=== PATIENT | male | born 1955 | race Caucasian/White ===

== ENCOUNTER 2017-04-27 11:37 | Inpatient (IN) | payer BC, SELFPAY ==
[2017-04-27 12:02] VITALS: BP 160/79; PULSE 91; RESP 16; TEMP 36.8; O2SAT 98
--- NOTE | 2017-04-27 12:03 | NURSING ---
Pt admitted to room 8 from [facility]. Oriented to room and call light system explained.
[2017-04-27] MEDS: Acetaminophen 500 MG Tablet 1000 MG PO ×2 (13:37→21:52)
[2017-04-27] MEDS: Gabapentin 600 MG Tablet PO ×2 (14:17→17:45)
[2017-04-27 14:55] VITALS: BMI 30.3
[2017-04-27 15:01] VITALS: BMI 30.3
[2017-04-27 15:44] VITALS: BP 128/78; PULSE 101; RESP 18; TEMP 37.1; O2SAT 99
[2017-04-27 17:46] LABS: Bedside Glucose 105 mg/dL (70-110)
--- NOTE | 2017-04-27 20:40 | PCM.HP.STD ---
Problem List (1) Fall Status: Acute (2) Leg pain Status: Acute (3) Diabetic amyotrophy Status: Chronic (4) Renal cyst Status: Chronic (5) Weakness Status: Acute (6) DM2 (diabetes mellitus, type 2) Status: Chronic (7) KODY (obstructive sleep apnea) Status: Chronic (8) Hypertension Status: Chronic History of Present Illness Date of Admission: 04/27/17 Chief Complaint: Here for rehabilitation, strengthening, prior to disposition determination. The patient is a 61 year old Male with below past medical history presented to [facility] Emergency Department 04/26/2017 with fall, bilateral leg pain. 04/26/2017 CT brain negative. 04/26/2017 Chest X-ray negative. 04/26/2017 EKG Normal sinus rhythm, left bundle branch block. 04/26/2017 X-ray left knee negative. 04/26/2017 X-ray pelvis negative. Discharged from 1 day prior. Recently diagnosed with diabetic amyotrophy. Prolonged stay in . Unable to care for self at home. Labs negative. 04/26/2017 Admit to Hospital. MRI lumbar spine showed lumbar disc disease, lumbar arthritis. Hold Tramadol, Fentanyl, Gabapentin. Ruled out for multiple sclerosis, stroke, transverse myelitis. Conversion disorder, Somatization disorder also possibility. 04/27/2017 Admit to TCU for rehabilitation, strengthening, prior to disposition determination. 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) Diabetic amyotrophy (Chronic) Allergies amphetamine Adverse Reaction (Verified 04/26/17 00:00) Other metformin [From Glucophage] Adverse Reaction (Verified 04/26/17 00:00) Nausea Home Medications: Ambulatory Orders Medication Instructions Recorded Gabapentin [Neurontin] 600 mg PO TIDCM #90 tab 04/25/17 Acetaminophen [Tylenol Tablet] 1,000 mg PO Q8 04/27/17 Insulin Aspart [Novolog Flexpen] 5 units SC TIDCM 04/27/17 Insulin Detemir [Levemir FlexPen] 10 units SC QHS 04/27/17 Losartan Potassium [Cozaar] 25 mg PO DAILY 04/27/17 Surgical History: no surgical history Psychiatric History: No pertinent psych hx Lives: Spouse/ Significant Other Smoking Status: Never smoker Tobacco Use: Non-smoker Alcohol: None Drugs: None - *Family History Paternal History Items: Dementia, - - 3 - 6 strokes when in his 70's Maternal History Items: No pertinent history Review of Systems Constitutional: Reports: Weakness. Denies: Chills, Fever, Weight Change HEENT: Denies: Head Aches, Sinus Congestion, Sinus Drainage Cardiovascular: Denies: Chest Pain, Palpitations Respiratory: Denies: Cough, Shortness of breath at rest, Sputum production Gastrointestinal: Denies: Abdominal Pain, Nausea, Vomiting Genitourinary: Denies: Dysuria Musculoskeletal: Denies: Joint Pain, Joint Tenderness Skin: Denies: Rash, Wounds Neurological: Denies: Numbness, Tingling, Focal weakness Psychiatric: Denies: Anxiety, Depression, Homicidal Ideations, Suicidal Ideations Hematologic/ Lymphatic: Denies: Easy Bruising, Easy Bleeding VTE Information - Inpt Only VTE Present on Admission: No VTE Mechan Device Prophylaxis: Knee High NORA Hose VTE Pharm Prophylaxis ordered?: Yes Patient Problems: Active and Suspected Problems (Last Updated 04/12/17 @ 16:53 by Merry Fraser) Fall (Acute) Leg pain (Acute) - Physical Exam General: Alert, Oriented x3, Cooperative HEENT: Atraumatic, PERRLA, EOMI, Normocephalic Neck: Supple, No JVD, Negative Carotid Bruits Lungs: Clear to auscultation, Normal air movement Cardiovascular: Regular rate, No murmurs Abdomen: Bowel Sounds Present, Soft, Non Tender Extremities: No edema, Capillary Refill Less than 3 Seconds Skin: No rashes, No breakdown Musculoskeletal: No Tenderness to Palpation of Joints or Extremities Neurological: Cranial nerves II-XII grossly intact Psych/Mental Status: Normal Affect, Appropriate Vital Signs Temp Pulse Resp BP Pulse Ox 98.7 F 101 H 18 128/78 H 99 04/27/17 15:44 04/27/17 15:44 04/27/17 15:44 04/27/17 15:44 04/27/17 15:44 Oxygen Delivery Method Room Air Weight: 93.2 kg Body Mass Index (BMI) 30.3 POC Glucose 04/27/17 17:41 POC Glucose 105 Assessment/Plan Active and Suspected Problems (Last Updated 04/12/17 @ 16:53 by Merry Fraser) Fall (Acute) Leg pain (Acute) 61 year old male with below past medical history significant for diabetic amyotrophy, hospitalized for fall, weakness, inability to care for self, admitted to TCU for rehabilitation, strengthening, prior to disposition determination. Debility - PT/OT. Pain - Tylenol 1000MG Q8H. Bowel - Miralax 17GM daily, Dulcolax 10MG PO daily PRN. Pneumonia vaccination - Administer Prevnar 13 and/or Pneumovax 23 as necessary. DVT prophylaxis - Lovenox 40MG SC daily. Neuropathic pain - Gabapentin 600MG TID. Diabetes Mellitus II - Levemir 10 units QHS, Novolog 5 units TIDCM. Hypertension - Losartan 25MG daily.
--- NOTE | 2017-04-27 20:52 | HP.PCM_ITS ---
Problem List (1) Fall Status: Acute (2) Leg pain Status: Acute (3) Diabetic amyotrophy Status: Chronic (4) Renal cyst Status: Chronic (5) Weakness Status: Acute (6) DM2 (diabetes mellitus, type 2) Status: Chronic (7) KODY (obstructive sleep apnea) Status: Chronic (8) Hypertension Status: Chronic History of Present Illness Date of Admission: 04/27/17 Chief Complaint: Here for rehabilitation, strengthening, prior to disposition determination. The patient is a 61 year old Male with below past medical history presented to [facility] Emergency Department 04/26/2017 with fall, bilateral leg pain. 04/26/2017 CT brain negative. 04/26/2017 Chest X-ray negative. 04/26/2017 EKG Normal sinus rhythm, left bundle branch block. 04/26/2017 X-ray left knee negative. 04/26/2017 X-ray pelvis negative. Discharged from 1 day prior. Recently diagnosed with diabetic amyotrophy. Prolonged stay in . Unable to care for self at home. Labs negative. 04/26/2017 Admit to Hospital. MRI lumbar spine showed lumbar disc disease, lumbar arthritis. Hold Tramadol, Fentanyl, Gabapentin. Ruled out for multiple sclerosis, stroke, transverse myelitis. Conversion disorder, Somatization disorder also possibility. 04/27/2017 Admit to TCU for rehabilitation, strengthening, prior to disposition determination. 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) Diabetic amyotrophy (Chronic) Allergies amphetamine Adverse Reaction (Verified 04/26/17 00:00) Other metformin [From Glucophage] Adverse Reaction (Verified 04/26/17 00:00) Nausea Home Medications: Ambulatory Orders Medication Instructions Recorded Gabapentin [Neurontin] 600 mg PO TIDCM #90 tab 04/25/17 Acetaminophen [Tylenol Tablet] 1,000 mg PO Q8 04/27/17 Insulin Aspart [Novolog Flexpen] 5 units SC TIDCM 04/27/17 Insulin Detemir [Levemir FlexPen] 10 units SC QHS 04/27/17 Losartan Potassium [Cozaar] 25 mg PO DAILY 04/27/17 Surgical History: no surgical history Psychiatric History: No pertinent psych hx Lives: Spouse/ Significant Other Smoking Status: Never smoker Tobacco Use: Non-smoker Alcohol: None Drugs: None - *Family History Paternal History Items: Dementia, - - 3 - 6 strokes when in his 70's Maternal History Items: No pertinent history Review of Systems Constitutional: Reports: Weakness. Denies: Chills, Fever, Weight Change HEENT: Denies: Head Aches, Sinus Congestion, Sinus Drainage Cardiovascular: Denies: Chest Pain, Palpitations Respiratory: Denies: Cough, Shortness of breath at rest, Sputum production Gastrointestinal: Denies: Abdominal Pain, Nausea, Vomiting Genitourinary: Denies: Dysuria Musculoskeletal: Denies: Joint Pain, Joint Tenderness Skin: Denies: Rash, Wounds Neurological: Denies: Numbness, Tingling, Focal weakness Psychiatric: Denies: Anxiety, Depression, Homicidal Ideations, Suicidal Ideations Hematologic/ Lymphatic: Denies: Easy Bruising, Easy Bleeding VTE Information - Inpt Only VTE Present on Admission: No VTE Mechan Device Prophylaxis: Knee High NORA Hose VTE Pharm Prophylaxis ordered?: Yes Patient Problems: Active and Suspected Problems (Last Updated 04/12/17 @ 16:53 by Merry Fraser) Fall (Acute) Leg pain (Acute) - Physical Exam General: Alert, Oriented x3, Cooperative HEENT: Atraumatic, PERRLA, EOMI, Normocephalic Neck: Supple, No JVD, Negative Carotid Bruits Lungs: Clear to auscultation, Normal air movement Cardiovascular: Regular rate, No murmurs Abdomen: Bowel Sounds Present, Soft, Non Tender Extremities: No edema, Capillary Refill Less than 3 Seconds Skin: No rashes, No breakdown Musculoskeletal: No Tenderness to Palpation of Joints or Extremities Neurological: Cranial nerves II-XII grossly intact Psych/Mental Status: Normal Affect, Appropriate Vital Signs Temp Pulse Resp BP Pulse Ox 98.7 F 101 H 18 128/78 H 99 04/27/17 15:44 04/27/17 15:44 04/27/17 15:44 04/27/17 15:44 04/27/17 15:44 Oxygen Delivery Method Room Air Weight: 93.2 kg Body Mass Index (BMI) 30.3 POC Glucose 04/27/17 17:41 POC Glucose 105 Assessment/Plan Active and Suspected Problems (Last Updated 04/12/17 @ 16:53 by Merry Fraser) Fall (Acute) Leg pain (Acute) 61 year old male with below past medical history significant for diabetic amyotrophy, hospitalized for fall, weakness, inability to care for self, admitted to TCU for rehabilitation, strengthening, prior to disposition determination. * Debility - PT/OT. * Pain - Tylenol 1000MG Q8H. * Bowel - Miralax 17GM daily, Dulcolax 10MG PO daily PRN. * Pneumonia vaccination - Administer Prevnar 13 and/or Pneumovax 23 as necessary. * DVT prophylaxis - Lovenox 40MG SC daily. * Neuropathic pain - Gabapentin 600MG TID. * Diabetes Mellitus II - Levemir 10 units QHS, Novolog 5 units TIDCM. * Hypertension - Losartan 25MG daily.
[2017-04-27 20:56] LABS: Bedside Glucose 188 mg/dL (70-110)
[2017-04-28] MEDS: Polyethylene Glycol 3350 17 GM PACKET PO (05:47)
[2017-04-28] MEDS: Enoxaparin 40 MG/0.4 ML Syringe SC (05:47)
[2017-04-28] MEDS: Losartan Potassium 25 MG Tablet PO (05:47)
[2017-04-28] MEDS: Acetaminophen 500 MG Tablet 1000 MG PO ×3 (05:48→21:59)
[2017-04-28 06:02] LABS: Absolute Lymphocyte Count 2.25 X10^3/ul (0.83-4.51); Absolute Neutrophil Count 6.6 X10^3/uL (2.0-7.7); Basophil# 0.04 X10^3/uL; Basophil% 0.4 % (0-1); Eosinophil# 0.17 X10^3/uL; Eosinophils% 1.6 % (0-5); Hematocrit 44.1 % (40-54); Hemoglobin 15.6 g/dl (13.0-16.5); Lymphocyte # 2.25 X10^3/ul (4.0); Lymphocyte % 21.7 % (19-41); Mean Corp Hgb Conc 35.4 g/gl (32-36); Mean Corpuscular Hgb 31.6 pg (27.0-32.0); Mean Corpuscular Volume 89.5 fL (80-94); Mean Platelet Vol. 11.8 fl (6.2-12.0); Monocyte# 1.28 X10^3/uL; Monocyte% 12.4 % (0-10); Neutrophil % 63.7 % (47-70); Platelet Count 356 K/mm3 (150-450); RBC Distribution Width SD 38.5 fl (35.1-43.9); Red Blood Count 4.93 M/mm3 (4.6-6.2); White Blood Count 10.4 K/mm3 (4.4-11.0)
[2017-04-28 06:04] LABS: POSITIVE COUNT NO; POSITIVE DIFFERENTIAL NO; POSITIVE MORPHOLOGY NO
[2017-04-28 06:14] LABS: Anion Gap 9 (5-15); BUN 14 mg/dL (7-18); BUN/Creat Ratio 23.4 RATIO (10-20); Calcium,Total 9.4 mg/dL (8.5-10.1); Chloride 103 mmol/L (98-107); EST Glomerular Filtration Rate 146 mL/min (>60); Est Glom Filt Rate - Afr Amer 177 mL/min (>60); Estimated Creatinine Clearance 129.29 ml/min; Glucose 142 mg/dL (70-110); Potassium 3.9 mmol/L (3.5-5.1); Sodium Level 135 mmol/L (136-145)
[2017-04-28 07:01] LABS: Bedside Glucose 172 mg/dL (70-110)
[2017-04-28] MEDS: Gabapentin 600 MG Tablet PO ×3 (07:57→17:29)
[2017-04-28 10:00] VITALS: PULSE 99; RESP 18; O2SAT 98
[2017-04-28] MEDS: Tuberculin,Purif.prot.deriv. 50 TU/ML Vial 5 ML ID (10:32)
[2017-04-28 11:56] LABS: Bedside Glucose 141 mg/dL (70-110)
--- NOTE | 2017-04-28 13:41 | PCM.PN.RX ---
<Esequiel Pillai Keenan - Last Filed: 04/28/17 13:41> Progress Note - Pharmacy Subjective: TCU Admission Objective: Allergies amphetamine Adverse Reaction (Verified 04/26/17 00:00) Other metformin [From Glucophage] Adverse Reaction (Verified 04/26/17 00:00) Nausea Home Medications Medication Instructions Recorded Gabapentin [Neurontin] 600 mg PO TIDCM #90 tab 04/25/17 Acetaminophen [Tylenol Tablet] 1,000 mg PO Q8 04/27/17 Insulin Aspart [Novolog Flexpen] 5 units SC TIDCM 04/27/17 Insulin Detemir [Levemir FlexPen] 10 units SC QHS 04/27/17 Losartan Potassium [Cozaar] 25 mg PO DAILY 04/27/17 Current Medications Generic Name Dose Route Start Last Admin Trade Name Freq PRN Reason Stop Dose Admin Acetaminophen 1,000 mg 04/27/17 14:00 04/28/17 13:37 Tylenol PO 1,000 mg Q8 SARA Administration Bisacodyl 10 mg 04/27/17 20:52 Dulcolax PO DAILY PRN Constipation Enoxaparin Sodium 40 mg 04/28/17 06:00 04/28/17 05:47 Lovenox SC 40 mg DAILY@0600 SARA Administration Gabapentin 600 mg 04/27/17 12:45 04/28/17 11:25 Neurontin PO 600 mg TIDCM SARA Administration Insulin Aspart 5 units 04/27/17 12:45 04/28/17 11:25 Novolog Flexpen (Bkc) SC 5 units TIDCM SARA Administration Insulin Detemir 10 units 04/27/17 22:00 04/27/17 21:52 Levemir (Bkc) SC 10 units QHS SARA Administration Losartan Potassium 25 mg 04/28/17 06:00 04/28/17 05:47 Cozaar PO 25 mg DAILY SARA Administration Polyethylene Glycol 17 gm 04/28/17 06:00 04/28/17 05:47 Miralax PO 17 gm DAILY SARA Administration Tuberculin PPD 5 tu 05/05/17 10:00 Tubersol, Aplisol, Ppd ID 05/05/17 10:01 X1 ONE Problem List (Last Updated 04/12/17 @ 16:53 by Merry Fraser) Fall (Acute) Leg pain (Acute) Diabetic amyotrophy (Chronic) Vital Signs Temp Pulse Resp BP Pulse Ox 98.7 F 99 18 128/78 H 98 04/27/17 15:44 04/28/17 10:00 04/28/17 10:00 04/27/17 15:44 04/28/17 10:00 Oxygen Delivery Method Room Air Weight: 93.2 kg Body Mass Index (BMI) 30.3 Sodium 135 mmol/L (136-145) L 04/28/17 05:05 Potassium 3.9 mmol/L (3.5-5.1) 04/28/17 05:05 Chloride 103 mmol/L (98-107) 04/28/17 05:05 Carbon Dioxide 23.0 mmol/L (21.0-32.0) 04/28/17 05:05 Anion Gap 9 (5-15) 04/28/17 05:05 BUN 14 mg/dL (7-18) 04/28/17 05:05 Creatinine 0.60 mg/dL (0.70-1.30) L 04/28/17 05:05 Est GFR (MDRD) Af Amer 177 mL/min (>60) 04/28/17 05:05 Est GFR (MDRD) Non-Af 146 mL/min (>60) 04/28/17 05:05 BUN/Creatinine Ratio 23.4 RATIO (10-20) H 04/28/17 05:05 Glucose 142 mg/dL (70-110) H 04/28/17 05:05 Assessment/Plan: 1) Pain Gabapentin 3x daily. Continue to monitor daily pain scores. 2) HTN Losartan daily. K wnl, BUN/SCr at baseline. Continue to monitor BP/HR, renal function, electrolytes. 3) DM2 Insulin detemir at HS, insulin aspart with meals. Avg BGT < 180 mg/dL. Continue to monitor BGT, s/s hyper/hypoglycemia. 4) DVT PPx Enoxaparin daily. Continue to monitor s/s bleeding/clot. Psychotropic Medications: None Unnecessary Medications: None Bowel Regimen: 5) PEG daily, prn bisacodyl. Continue to monitor prn medication use, for constipation/diarrhea. Date of Note:: 04/28/17 - Provider Comments Provider responsibility: Provider responsible to enter orders to implement recommendations <Fredis Mancilla Chi - Last Filed: 04/28/17 14:10> Progress Note - Pharmacy Subjective: [] Objective: Allergies amphetamine Adverse Reaction (Verified 04/26/17 00:00) Other metformin [From Glucophage] Adverse Reaction (Verified 04/26/17 00:00) Nausea Home Medications Medication Instructions Recorded Gabapentin [Neurontin] 600 mg PO TIDCM #90 tab 04/25/17 Acetaminophen [Tylenol Tablet] 1,000 mg PO Q8 04/27/17 Insulin Aspart [Novolog Flexpen] 5 units SC TIDCM 04/27/17 Insulin Detemir [Levemir FlexPen] 10 units SC QHS 04/27/17 Losartan Potassium [Cozaar] 25 mg PO DAILY 04/27/17 Current Medications Generic Name Dose Route Start Last Admin Trade Name Freq PRN Reason Stop Dose Admin Acetaminophen 1,000 mg 04/27/17 14:00 04/28/17 13:37 Tylenol PO 1,000 mg Q8 SARA Administration Bisacodyl 10 mg 04/27/17 20:52 Dulcolax PO DAILY PRN Constipation Enoxaparin Sodium 40 mg 04/28/17 06:00 04/28/17 05:47 Lovenox SC 40 mg DAILY@0600 SARA Administration Gabapentin 600 mg 04/27/17 12:45 04/28/17 11:25 Neurontin PO 600 mg TIDCM SARA Administration Insulin Aspart 5 units 04/27/17 12:45 04/28/17 11:25 Novolog Flexpen (Bkc) SC 5 units TIDCM SARA Administration Insulin Detemir 10 units 04/27/17 22:00 04/27/17 21:52 Levemir (Bkc) SC 10 units QHS SARA Administration Losartan Potassium 25 mg 04/28/17 06:00 04/28/17 05:47 Cozaar PO 25 mg DAILY SARA Administration Polyethylene Glycol 17 gm 04/28/17 06:00 04/28/17 05:47 Miralax PO 17 gm DAILY SARA Administration Tuberculin PPD 5 tu 05/05/17 10:00 Tubersol, Aplisol, Ppd ID 05/05/17 10:01 X1 ONE Problem List (Last Updated 04/12/17 @ 16:53 by Merry Fraser) Fall (Acute) Leg pain (Acute) Diabetic amyotrophy (Chronic) Vital Signs Temp Pulse Resp BP Pulse Ox 98.7 F 99 18 128/78 H 98 04/27/17 15:44 04/28/17 10:00 04/28/17 10:00 04/27/17 15:44 04/28/17 10:00 Oxygen Delivery Method Room Air Weight: 93.2 kg Body Mass Index (BMI) 30.3 Sodium 135 mmol/L (136-145) L 04/28/17 05:05 Potassium 3.9 mmol/L (3.5-5.1) 04/28/17 05:05 Chloride 103 mmol/L (98-107) 04/28/17 05:05 Carbon Dioxide 23.0 mmol/L (21.0-32.0) 04/28/17 05:05 Anion Gap 9 (5-15) 04/28/17 05:05 BUN 14 mg/dL (7-18) 04/28/17 05:05 Creatinine 0.60 mg/dL (0.70-1.30) L 04/28/17 05:05 Est GFR (MDRD) Af Amer 177 mL/min (>60) 04/28/17 05:05 Est GFR (MDRD) Non-Af 146 mL/min (>60) 04/28/17 05:05 BUN/Creatinine Ratio 23.4 RATIO (10-20) H 04/28/17 05:05 Glucose 142 mg/dL (70-110) H 04/28/17 05:05 Assessment/Plan: Psychotropic Medications: Unnecessary Medications: Bowel Regimen: - Provider Comments Provider responsibility: Provider responsible to enter orders to implement recommendations Provider Comments to Recommendations by Pharmacy: Agree
[2017-04-28 16:11] VITALS: BP 121/70; PULSE 90; RESP 16; TEMP 36.1; O2SAT 98
[2017-04-28 17:21] LABS: Bedside Glucose 145 mg/dL (70-110)
[2017-04-28 21:11] LABS: Bedside Glucose 156 mg/dL (70-110)
[2017-04-28 22:00] VITALS: PULSE 90; RESP 18; O2SAT 94
[2017-04-29] MEDS: Acetaminophen 500 MG Tablet 1000 MG PO ×3 (06:00→21:12)
[2017-04-29] MEDS: Polyethylene Glycol 3350 17 GM PACKET PO (06:00)
[2017-04-29] MEDS: Enoxaparin 40 MG/0.4 ML Syringe SC (06:00)
[2017-04-29] MEDS: Losartan Potassium 25 MG Tablet PO (06:00)
[2017-04-29 06:36] LABS: Bedside Glucose 151 mg/dL (70-110)
[2017-04-29] MEDS: Gabapentin 600 MG Tablet PO ×3 (08:39→18:16)
[2017-04-29 10:00] VITALS: PULSE 72; RESP 18; O2SAT 96
[2017-04-29 11:31] LABS: Bedside Glucose 172 mg/dL (70-110)
[2017-04-29 16:00] VITALS: BP 134/78; PULSE 99; RESP 18; TEMP 36.9; O2SAT 98
[2017-04-29 16:55] LABS: Bedside Glucose 169 mg/dL (70-110)
[2017-04-29] MEDS: Senna/Docusate Sodium 1 Tablet PO (18:16)
[2017-04-29 20:56] LABS: Bedside Glucose 201 mg/dL (70-110)
[2017-04-30] MEDS: Losartan Potassium 25 MG Tablet PO (06:17)
[2017-04-30] MEDS: Acetaminophen 500 MG Tablet 1000 MG PO ×3 (06:17→21:15)
[2017-04-30] MEDS: Enoxaparin 40 MG/0.4 ML Syringe SC (06:17)
[2017-04-30] MEDS: Bisacodyl 5 MG Tablet 10 MG PO (06:24)
[2017-04-30] MEDS: Polyethylene Glycol 3350 17 GM PACKET PO (06:24)
[2017-04-30 06:41] LABS: Bedside Glucose 150 mg/dL (70-110)
[2017-04-30] MEDS: Gabapentin 600 MG Tablet PO ×3 (08:00→16:58)
--- NOTE | 2017-04-30 08:48 | NURSING ---
ROLL BUILDER REPORTED PT REQUESTING SOMETHING FOR PAIN NEEDED, ONLY HAS SCHED TYLENOL. NEW ORDER FOR PRN ULTRAM MOD PAIN
[2017-04-30 10:00] VITALS: PULSE 78; RESP 16
[2017-04-30 11:16] LABS: Bedside Glucose 122 mg/dL (70-110)
[2017-04-30 16:00] VITALS: BP 143/67; PULSE 84; RESP 18; TEMP 36.8; O2SAT 96
--- NOTE | 2017-04-30 16:25 | NURSING ---
JUNIOR PHP DEVELOPER EDEMA TO RT FOOT, KNEE HIGH TEDS APPLIED. WILL CONT TO MONITOR.
[2017-04-30 17:20] LABS: Bedside Glucose 112 mg/dL (70-110)
[2017-04-30 21:27] LABS: Bedside Glucose 213 mg/dL (70-110)
[2017-05-01] MEDS: Losartan Potassium 25 MG Tablet PO (06:20)
[2017-05-01] MEDS: Polyethylene Glycol 3350 17 GM PACKET PO (06:20)
[2017-05-01] MEDS: Acetaminophen 500 MG Tablet 1000 MG PO ×3 (06:20→22:15)
[2017-05-01] MEDS: Senna/Docusate Sodium 1 Tablet PO ×2 (06:20→18:37)
[2017-05-01] MEDS: Enoxaparin 40 MG/0.4 ML Syringe SC (06:25)
[2017-05-01 06:45] LABS: Bedside Glucose 134 mg/dL (70-110)
[2017-05-01] MEDS: Gabapentin 600 MG Tablet PO ×3 (08:54→18:37)
--- NOTE | 2017-05-01 10:20 | VDLE_ITS ---
Reason For Study: LEG PAIN RIGHT LEFT GSV is normal. GSV is normal. CFV is compressible, spontaneous, phasic, CFV is compressible, spontaneous, phasic, competent and demonstrates normal competent, and demonstrates normal augmentation. augmentation. FV is compressible, spontaneous, phasic, FV is compressible, spontaneous, phasic, competent and demonstrates normal competent and demonstrates normal augmentation. augmentation. POP V is compressible, spontaneous, phasic, POP V is compressible, spontaneous, phasic, competent and demonstrates normal competent and demonstrates normal augmentation. augmentation. T/P Trunk is compressible. T/P Trunk is compressible. PTV is compressible. PTV is compressible. RT PerV is compressible. LT PerV is compressible. Procedure Exam performed portable in patient room. A preliminary report was called and/or faxed to TCU nurse. Interpretation Summary 1. Bilateral no DVT. Ordering Physician: Fredis Mancilla Referring Physician: Abimael Santiago Performed By: Amrita Napier RVT
--- NOTE | 2017-05-01 10:22 | NURSING ---
Addendum entered by Courtney Corona 05/01/17 18:42: doppler negative, NNO. Original Note: Pt having increased swelling to right foot, Dr. Mancilla made aware, NO for BL venous doppler.
[2017-05-01 12:02] LABS: Bedside Glucose 90 mg/dL (70-110)
--- NOTE | 2017-05-01 12:57 | CASEMGMT ---
Insurance Clinical information faxed. Pending continued stay approval at this time. Auth#[id number] Kelsea MAN, TECHNOLOGY TRAINING ASSOCIATE
[2017-05-01 15:30] VITALS: BP 137/73; PULSE 90; RESP 20; TEMP 36.7; O2SAT 98
[2017-05-01 17:11] LABS: Bedside Glucose 127 mg/dL (70-110)
[2017-05-01 21:56] LABS: Bedside Glucose 155 mg/dL (70-110)
[2017-05-02] MEDS: Acetaminophen 500 MG Tablet 1000 MG PO ×3 (05:16→21:52)
[2017-05-02] MEDS: Senna/Docusate Sodium 1 Tablet PO ×2 (05:16→17:30)
[2017-05-02] MEDS: Losartan Potassium 25 MG Tablet PO (05:16)
[2017-05-02] MEDS: Enoxaparin 40 MG/0.4 ML Syringe SC (05:16)
[2017-05-02] MEDS: Polyethylene Glycol 3350 17 GM PACKET PO (05:16)
[2017-05-02 07:21] LABS: Bedside Glucose 150 mg/dL (70-110)
[2017-05-02] MEDS: Gabapentin 600 MG Tablet PO ×3 (08:31→17:30)
[2017-05-02 10:00] VITALS: PULSE 93; RESP 18; O2SAT 99
--- NOTE | 2017-05-02 10:41 | CASEMGMT ---
Brief interview for mental status (BIMS) and resident mood interview (PHQ-9) completed on this day. BIMS score 15. PHQ-9 score 08/27
--- NOTE | 2017-05-02 10:42 | CASEMGMT ---
Addendum entered by Kelsea Don 05/02/17 10:43: Correction update due on 05/04/17 with last cover day being 05/05/17 Original Note: Insurance Continued stay approved with next update due on 04/03/17. 04/04/17 is last cover day. Auth#[id number] Kelsea MAN, COTTON FARMER
[2017-05-02 12:01] LABS: Bedside Glucose 146 mg/dL (70-110)
[2017-05-02 15:35] VITALS: BP 132/73; PULSE 85; RESP 18; TEMP 37.3; O2SAT 98
[2017-05-02 17:11] LABS: Bedside Glucose 124 mg/dL (70-110)
[2017-05-02 21:35] LABS: Bedside Glucose 175 mg/dL (70-110)
[2017-05-03] MEDS: Enoxaparin 40 MG/0.4 ML Syringe SC (04:52)
[2017-05-03] MEDS: Losartan Potassium 25 MG Tablet PO (04:52)
[2017-05-03] MEDS: Senna/Docusate Sodium 1 Tablet PO (04:53)
[2017-05-03] MEDS: Polyethylene Glycol 3350 17 GM PACKET PO (04:53)
[2017-05-03] MEDS: Acetaminophen 500 MG Tablet 1000 MG PO ×3 (04:54→21:34)
[2017-05-03 07:06] LABS: Bedside Glucose 136 mg/dL (70-110)
[2017-05-03] MEDS: Gabapentin 600 MG Tablet PO ×3 (07:57→17:16)
--- NOTE | 2017-05-03 09:34 | CASEMGMT ---
Plan of care meeting held. Resident present, no support person present. No discharge date set at this time. Resident plans to continue with further care and treatment on the Transitional Care Unit at this time. Resident plans to discharge home with spouse at time of discharge. Resident does have an insurance update due on 05/04/17. Support given. Will continue to follow. Kelsea MAN, DIRECTOR OF CLINICAL APPLICATIONS
[2017-05-03 11:01] LABS: Bedside Glucose 142 mg/dL (70-110)
[2017-05-03 15:29] VITALS: BP 141/81; PULSE 95; RESP 20; TEMP 36.6; O2SAT 99
[2017-05-03 17:06] LABS: Bedside Glucose 142 mg/dL (70-110)
[2017-05-03 21:36] LABS: Bedside Glucose 181 mg/dL (70-110)
[2017-05-04] MEDS: Enoxaparin 40 MG/0.4 ML Syringe SC (05:42)
[2017-05-04] MEDS: Losartan Potassium 25 MG Tablet PO (05:43)
[2017-05-04] MEDS: Acetaminophen 500 MG Tablet 1000 MG PO ×3 (05:43→21:40)
[2017-05-04 06:52] LABS: Bedside Glucose 139 mg/dL (70-110)
[2017-05-04] MEDS: Gabapentin 600 MG Tablet PO ×3 (08:29→17:24)
[2017-05-04 11:00] LABS: Bedside Glucose 117 mg/dL (70-110)
--- NOTE | 2017-05-04 13:26 | CASEMGMT ---
Insurance Clinical information faxed. Pending continued stay approval at this time. Auth#[id number] Kelsea MAN, LOADER TECHNICIAN
[2017-05-04 15:22] VITALS: BP 155/86; PULSE 98; RESP 16; TEMP 36.4; O2SAT 99
[2017-05-04 17:06] LABS: Bedside Glucose 177 mg/dL (70-110)
[2017-05-04] MEDS: Senna/Docusate Sodium 1 Tablet PO (17:24)
[2017-05-04 21:16] LABS: Bedside Glucose 164 mg/dL (70-110)
[2017-05-04 21:40] VITALS: BP 143/73; PULSE 96; RESP 16; TEMP 36.8; O2SAT 96
[2017-05-05] MEDS: Losartan Potassium 25 MG Tablet PO (05:17)
[2017-05-05] MEDS: Senna/Docusate Sodium 1 Tablet PO ×2 (05:17→17:49)
[2017-05-05] MEDS: Enoxaparin 40 MG/0.4 ML Syringe SC (05:18)
[2017-05-05] MEDS: Acetaminophen 500 MG Tablet 1000 MG PO ×3 (05:45→21:49)
[2017-05-05 06:44] LABS: Absolute Lymphocyte Count 2.57 X10^3/ul (0.83-4.51); Absolute Neutrophil Count 6.1 X10^3/uL (2.0-7.7); Basophil# 0.04 X10^3/uL; Basophil% 0.4 % (0-1); Eosinophil# 0.24 X10^3/uL; Eosinophils% 2.4 % (0-5); Hematocrit 44.3 % (40-54); Hemoglobin 15.3 g/dl (13.0-16.5); Lymphocyte # 2.57 X10^3/ul (4.0); Mean Corp Hgb Conc 34.5 g/gl (32-36); Mean Corpuscular Hgb 31.2 pg (27.0-32.0); Mean Corpuscular Volume 90.4 fL (80-94); Monocyte# 0.95 X10^3/uL; Monocyte% 9.6 % (0-10); Neutrophil # 6.05 X10^3/uL (2.7-7.7); Neutrophil % 61.4 % (47-70); Platelet Count 321 K/mm3 (150-450); RBC Distribution Width SD 39.6 fl (35.1-43.9); White Blood Count 9.9 K/mm3 (4.4-11.0)
[2017-05-05 06:46] LABS: POSITIVE COUNT NO; POSITIVE DIFFERENTIAL NO; POSITIVE MORPHOLOGY NO
[2017-05-05 06:46] LABS: Bedside Glucose 161 mg/dL (70-110)
[2017-05-05 07:21] LABS: Anion Gap 9 (5-15); BUN 11 mg/dL (7-18); BUN/Creat Ratio 19.6 RATIO (10-20); Calcium,Total 9.1 mg/dL (8.5-10.1); Chloride 103 mmol/L (98-107); Creatinine, Serum 0.56 mg/dL (0.70-1.30); EST Glomerular Filtration Rate 157 mL/min (>60); Est Glom Filt Rate - Afr Amer 190 mL/min (>60); Estimated Creatinine Clearance 138.52 ml/min; Glucose 145 mg/dL (70-110); Potassium 3.9 mmol/L (3.5-5.1); Sodium Level 136 mmol/L (136-145)
[2017-05-05] MEDS: Gabapentin 600 MG Tablet PO ×3 (08:57→17:49)
[2017-05-05] MEDS: Tuberculin,Purif.prot.deriv. 50 TU/ML Vial 5 ML ID (11:07)
--- NOTE | 2017-05-05 11:10 | CASEMGMT ---
Insurance Continued stay approve with next update due on 05/09/17. Last cover day is: 05/10/17. Auth#[id number] Kelsea MAN, ANSWERING SERVICE AGENT
[2017-05-05 11:25] LABS: Bedside Glucose 136 mg/dL (70-110)
[2017-05-05 15:54] VITALS: BP 140/75; PULSE 85; RESP 20; TEMP 36.8; O2SAT 97
[2017-05-05 17:22] LABS: Bedside Glucose 126 mg/dL (70-110)
[2017-05-05 21:26] LABS: Bedside Glucose 150 mg/dL (70-110)
[2017-05-06] MEDS: Acetaminophen 500 MG Tablet 1000 MG PO ×3 (05:31→22:05)
[2017-05-06] MEDS: Senna/Docusate Sodium 1 Tablet PO ×2 (05:31→17:43)
[2017-05-06] MEDS: Enoxaparin 40 MG/0.4 ML Syringe SC (05:31)
[2017-05-06] MEDS: Polyethylene Glycol 3350 17 GM PACKET PO (05:32)
[2017-05-06] MEDS: Losartan Potassium 25 MG Tablet PO (05:32)
[2017-05-06 06:56] LABS: Bedside Glucose 187 mg/dL (70-110)
[2017-05-06] MEDS: Gabapentin 600 MG Tablet PO ×3 (08:03→17:44)
[2017-05-06 10:00] VITALS: PULSE 89; O2SAT 98
[2017-05-06 11:46] LABS: Bedside Glucose 144 mg/dL (70-110)
[2017-05-06 17:21] LABS: Bedside Glucose 120 mg/dL (70-110)
[2017-05-06 21:30] LABS: Bedside Glucose 192 mg/dL (70-110)
[2017-05-06 22:01] VITALS: BP 129/84; PULSE 97; RESP 18; TEMP 36.8; O2SAT 100
[2017-05-06] MEDS: Bisacodyl 5 MG Tablet 10 MG PO (22:06)
[2017-05-07] MEDS: Losartan Potassium 25 MG Tablet PO (05:04)
[2017-05-07] MEDS: Polyethylene Glycol 3350 17 GM PACKET PO (05:05)
[2017-05-07] MEDS: Senna/Docusate Sodium 1 Tablet PO ×2 (05:05→17:55)
[2017-05-07] MEDS: Enoxaparin 40 MG/0.4 ML Syringe SC (05:05)
[2017-05-07] MEDS: Acetaminophen 500 MG Tablet 1000 MG PO ×3 (05:06→21:03)
[2017-05-07 07:01] LABS: Bedside Glucose 144 mg/dL (70-110)
[2017-05-07] MEDS: Gabapentin 600 MG Tablet PO ×3 (07:54→17:55)
[2017-05-07] MEDS: Bisacodyl 5 MG Tablet 10 MG PO (07:55)
[2017-05-07 10:00] VITALS: PULSE 90; RESP 18; O2SAT 98
[2017-05-07 11:56] LABS: Bedside Glucose 138 mg/dL (70-110)
[2017-05-07 15:53] VITALS: BP 135/85; PULSE 89; RESP 16; TEMP 36.2; O2SAT 98
[2017-05-07 17:36] LABS: Bedside Glucose 126 mg/dL (70-110)
[2017-05-07 21:11] LABS: Bedside Glucose 158 mg/dL (70-110)
[2017-05-08] MEDS: Acetaminophen 500 MG Tablet 1000 MG PO ×3 (06:08→21:05)
[2017-05-08] MEDS: Polyethylene Glycol 3350 17 GM PACKET PO (06:08)
[2017-05-08] MEDS: Enoxaparin 40 MG/0.4 ML Syringe SC (06:08)
[2017-05-08] MEDS: Losartan Potassium 25 MG Tablet PO (06:08)
[2017-05-08] MEDS: Senna/Docusate Sodium 1 Tablet PO ×2 (06:08→17:11)
[2017-05-08 06:46] LABS: Bedside Glucose 132 mg/dL (70-110)
[2017-05-08] MEDS: Gabapentin 600 MG Tablet PO ×3 (08:10→17:11)
[2017-05-08 11:31] LABS: Bedside Glucose 137 mg/dL (70-110)
[2017-05-08 15:18] VITALS: BP 137/77; PULSE 97; RESP 18; TEMP 36.8; O2SAT 96
--- NOTE | 2017-05-08 16:51 | CHAPLAIN ---
Type of Pastoral Visit ___ Initial Visit _x__ Follow-up Visit ___ On-call Visit ___ General Patient Visit ___ Spiritual Assessment ___ Family Conference ___ Bereavement ___ Rapid Response ___ Code Blue ___ Other (describe below) Pastoral Care Referral From _x__ Patient ___ Family ___ Nurse ___ Physician ___ Binder Cutter ___ Preschool Assistant Principal ___ Other (describe below) Sacrament/Intervention _x__ Active listening ___ Anointing ___ Roman Catholic ___ Bereavement ___ Communion _x__ Karrie exploration ___ _x__ Life review _x__ Prayer ___ Reconciliation ___ Sacrament of Sick _x__ Supportive presence ___ Wedding ___ Other (describe below) Pastoral Comments
[2017-05-08 16:56] LABS: Bedside Glucose 119 mg/dL (70-110)
--- NOTE | 2017-05-08 17:38 | NURSING ---
dr Mancilla notified of pt stating he did not take insulin at home but took pill form. New order for tradjenta daily and d/c insulins.
[2017-05-08 21:11] LABS: Bedside Glucose 130 mg/dL (70-110)
[2017-05-09] MEDS: LINAGLIPTIN 5 MG TABLET PO (05:47)
[2017-05-09] MEDS: Acetaminophen 500 MG Tablet 1000 MG PO ×3 (05:47→21:36)
[2017-05-09] MEDS: Polyethylene Glycol 3350 17 GM PACKET PO (05:47)
[2017-05-09] MEDS: Losartan Potassium 25 MG Tablet PO (05:47)
[2017-05-09] MEDS: Enoxaparin 40 MG/0.4 ML Syringe SC (05:47)
[2017-05-09] MEDS: Senna/Docusate Sodium 1 Tablet PO ×2 (05:47→17:20)
[2017-05-09 06:36] LABS: Bedside Glucose 162 mg/dL (70-110)
[2017-05-09] MEDS: Gabapentin 600 MG Tablet PO ×3 (07:40→17:20)
--- NOTE | 2017-05-09 09:13 | CASEMGMT ---
Insurance Clinical information faxed. Pending continued stay approval at this time. Auth#[id number] Kelsea MAN, ASSOCIATION EXECUTIVE
[2017-05-09 11:36] LABS: Bedside Glucose 129 mg/dL (70-110)
[2017-05-09 15:12] VITALS: BP 143/78; PULSE 85; RESP 16; TEMP 36.7; O2SAT 98
--- NOTE | 2017-05-09 16:08 | CASEMGMT ---
Insurance Continued stay approved with next update due on 05/15/17 and last cover day being 05/15/17. Auth#[id number] Kelsea MAN, TRACK GREASER
[2017-05-09 17:11] LABS: Bedside Glucose 134 mg/dL (70-110)
--- NOTE | 2017-05-09 20:11 | PCM.CONS.GEN ---
Reason for Consult Date of Consultation: 05/09/17 Reason for Consultation: Toenails, patient diabetic History of Present Illness: The patient is a 61 year old gentleman with history of diabetes, and also relates he has history of diabetic neuropathy was seen today for long, thick painful toenails 1-5 bilateral. He is unable to maintain them himself. He also has dry skin on his feet. He has no other complaints. 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) Hypertension (Chronic) KODY (obstructive sleep apnea) (Chronic) DM2 (diabetes mellitus, type 2) (Chronic) Renal cyst (Chronic) Diabetic amyotrophy (Chronic) Allergies amphetamine Adverse Reaction (Verified 04/26/17 00:00) Other metformin [From Glucophage] Adverse Reaction (Verified 04/26/17 00:00) Nausea Home Medications: Ambulatory Orders Medication Instructions Recorded Gabapentin [Neurontin] 600 mg PO TIDCM #90 tab 04/25/17 Acetaminophen [Tylenol Tablet] 1,000 mg PO Q8 04/27/17 Insulin Aspart [Novolog Flexpen] 5 units SC TIDCM 04/27/17 Insulin Detemir [Levemir FlexPen] 10 units SC QHS 04/27/17 Losartan Potassium [Cozaar] 25 mg PO DAILY 04/27/17 Surgical History: no surgical history Psychiatric History: No pertinent psych hx Lives: Spouse/ Significant Other Smoking Status: Never smoker Tobacco Use: Non-smoker Alcohol: None Drugs: None - *Family History Paternal History Items: Dementia, - - 3 - 6 strokes when in his 70's Maternal History Items: No pertinent history Review of Systems Constitutional: Denies: Chills, Fever Gastrointestinal: Denies: Nausea, Vomiting Patient Problems: Active and Suspected Problems (Last Updated 04/12/17 @ 16:53 by Merry Fraser) Fall (Acute) Leg pain (Acute) - Physical Exam General: Alert, Oriented x3, Cooperative, No apparent distress Extremities: No clubbing, No cyanosis, No edema, Capillary Refill Less than 3 Seconds, No Calf Tenderness, Peripheral Pulses Normal, - - Toenails 1-5 bilateral are thickened, dystrophic, elongated, painful with subungual debris. Very small superifcial abrasion left 5th toe - healthy and viable, otherwise there are no open lesions, no erythema, no cellulitis, no drainage bilateral foot/ankle. Sensation intact to light touch bilateral foot. Motor function intact bilateral foot/ankle. CFT < 2 seconds to all toes, temperature gradient within normal limits and pedal pulses palpable bilateral foot. Vital Signs Temp Pulse Resp BP Pulse Ox 98.0 F 85 16 143/78 H 98 05/09/17 15:12 05/09/17 15:12 05/09/17 15:12 05/09/17 15:12 05/09/17 15:12 Oxygen Delivery Method Room Air Weight: 101 kg Body Mass Index (BMI) 30.3 Intake and Output for Last 24 Hours 05/07/17 05/08/17 05/09/17 23:59 23:59 23:59 Intake Total 720 / 720 960 / 960 1080 / 1080 Output Total 1300 / 1300 Balance 720 / 720 960 / 960 -220 / -220 POC Glucose 05/09/17 05/09/17 05/09/17 17:04 11:16 06:23 POC Glucose 134 H 129 H 162 H 05/08/17 21:04 POC Glucose 130 H Assessment/Plan Active and Suspected Problems (Last Updated 04/12/17 @ 16:53 by Merry Fraser) Fall (Acute) Leg pain (Acute) Onychomycosis Pain in toe, right & left Xerosis bilateral foot Diabetes Feet were evaluated. Reviewed findings with him. Reviewed condition and treatment options. At this time we will proceed with palliative care to the toenails. Today debrided toenails 1-5 bilateral, this was done without incident. We discussed possible topical antifungal to treat this in the future. Topical eucerin to feet to treat dry skin daily. Bacitracin ointment to small abrasion left 5th toe. We also discussed diabetic foot care, as well as diabetic shoes and inserts. He is going to follow up as outpatient to further discuss this once he is discharged home. This was discussed with him in detail, and he agreed with plan. All of his questions were answered.
[2017-05-09 21:16] LABS: Bedside Glucose 151 mg/dL (70-110)
[2017-05-10] MEDS: Polyethylene Glycol 3350 17 GM PACKET PO (05:24)
[2017-05-10] MEDS: Senna/Docusate Sodium 1 Tablet PO ×2 (05:27→17:13)
[2017-05-10] MEDS: Enoxaparin 40 MG/0.4 ML Syringe SC (05:27)
[2017-05-10] MEDS: Acetaminophen 500 MG Tablet 1000 MG PO ×3 (05:27→22:23)
[2017-05-10] MEDS: LINAGLIPTIN 5 MG TABLET PO (05:27)
[2017-05-10] MEDS: Bisacodyl 5 MG Tablet 10 MG PO (05:27)
[2017-05-10] MEDS: Losartan Potassium 25 MG Tablet PO (05:27)
[2017-05-10 06:30] LABS: Bedside Glucose 140 mg/dL (70-110)
[2017-05-10] MEDS: BACITRACIN 15 GM Tube 1 APPLIC TOPICAL ×2 (06:38→22:24)
--- NOTE | 2017-05-10 07:33 | MDS.RN ---
Information for the mds was obtained from review of the clinical record, interview of resident, staff, and direct observation of resident's care.
[2017-05-10] MEDS: Gabapentin 600 MG Tablet PO ×3 (08:20→17:13)
[2017-05-10 11:15] LABS: Bedside Glucose 145 mg/dL (70-110)
[2017-05-10 16:00] VITALS: BP 138/78; PULSE 95; RESP 18; TEMP 36.8; O2SAT 97
[2017-05-10 17:11] LABS: Bedside Glucose 174 mg/dL (70-110)
[2017-05-10 20:51] LABS: Bedside Glucose 137 mg/dL (70-110)
[2017-05-11] MEDS: Acetaminophen 500 MG Tablet 1000 MG PO ×3 (05:36→22:39)
[2017-05-11] MEDS: Losartan Potassium 25 MG Tablet PO (05:37)
[2017-05-11] MEDS: Enoxaparin 40 MG/0.4 ML Syringe SC (05:37)
[2017-05-11] MEDS: BACITRACIN 15 GM Tube 1 APPLIC TOPICAL ×2 (05:37→22:39)
[2017-05-11] MEDS: Senna/Docusate Sodium 1 Tablet PO (05:38)
[2017-05-11] MEDS: LINAGLIPTIN 5 MG TABLET PO (05:38)
[2017-05-11 06:51] LABS: Bedside Glucose 147 mg/dL (70-110)
[2017-05-11 10:00] VITALS: PULSE 84; RESP 18; O2SAT 98
[2017-05-11] MEDS: Gabapentin 600 MG Tablet PO ×3 (10:00→18:01)
[2017-05-11 16:00] VITALS: BP 144/78; PULSE 80; RESP 18; TEMP 36.8; O2SAT 100
[2017-05-12 05:46] LABS: Absolute Lymphocyte Count 2.34 X10^3/ul (0.83-4.51); Absolute Neutrophil Count 5.8 X10^3/uL (2.0-7.7); Basophil# 0.04 X10^3/uL; Basophil% 0.4 % (0-1); Eosinophil# 0.25 X10^3/uL; Eosinophils% 2.6 % (0-5); Hematocrit 42.5 % (40-54); Hemoglobin 15.2 g/dl (13.0-16.5); Lymphocyte # 2.34 X10^3/ul (4.0); Lymphocyte % 24.3 % (19-41); Mean Corp Hgb Conc 35.8 g/gl (32-36); Mean Corpuscular Hgb 31.9 pg (27.0-32.0); Mean Corpuscular Volume 89.1 fL (80-94); Mean Platelet Vol. 11.3 fl (6.2-12.0); Monocyte# 1.22 X10^3/uL; Monocyte% 12.7 % (0-10); Neutrophil # 5.77 X10^3/uL (2.7-7.7); Neutrophil % 59.8 % (47-70); Platelet Count 285 K/mm3 (150-450); RBC Distribution Width CV 11.9 % (11.6-14.6); RBC Distribution Width SD 38.4 fl (35.1-43.9); Red Blood Count 4.77 M/mm3 (4.6-6.2); White Blood Count 9.6 K/mm3 (4.4-11.0)
[2017-05-12 05:52] LABS: POSITIVE COUNT NO; POSITIVE DIFFERENTIAL NO; POSITIVE MORPHOLOGY NO
[2017-05-12 06:00] LABS: Anion Gap 9 (5-15); BUN 13 mg/dL (7-18); BUN/Creat Ratio 23.8 RATIO (10-20); Calcium,Total 9.1 mg/dL (8.5-10.1); Chloride 102 mmol/L (98-107); Creatinine, Serum 0.55 mg/dL (0.70-1.30); EST Glomerular Filtration Rate 162 mL/min (>60); Est Glom Filt Rate - Afr Amer 196 mL/min (>60); Estimated Creatinine Clearance 141.04 ml/min; Glucose 132 mg/dL (74-106); Potassium 3.9 mmol/L (3.5-5.1); Sodium Level 135 mmol/L (136-145)
[2017-05-12 06:51] LABS: Bedside Glucose 146 mg/dL (70-110)
[2017-05-12] MEDS: BACITRACIN 15 GM Tube 1 APPLIC TOPICAL ×2 (07:00→20:37)
[2017-05-12] MEDS: Senna/Docusate Sodium 1 Tablet PO ×2 (07:01→16:46)
[2017-05-12] MEDS: Enoxaparin 40 MG/0.4 ML Syringe SC (07:01)
[2017-05-12] MEDS: Losartan Potassium 25 MG Tablet PO (07:01)
[2017-05-12] MEDS: Acetaminophen 500 MG Tablet 1000 MG PO ×3 (07:02→20:38)
[2017-05-12] MEDS: Gabapentin 600 MG Tablet PO ×3 (07:02→16:46)
[2017-05-12] MEDS: LINAGLIPTIN 5 MG TABLET PO (07:02)
[2017-05-12 16:00] VITALS: BP 140/77; PULSE 94; RESP 20; TEMP 36.6; O2SAT 97
--- NOTE | 2017-05-12 22:05 | NURSING ---
Patient asking staff why he needs more help to transfer. As this nurse and aide was putting patient in bed, patient decided to buckle knees and wouldn't help stand. After patient was in bed, patient pushed himself up in bed with no issues.
[2017-05-13] MEDS: BACITRACIN 15 GM Tube 1 APPLIC TOPICAL ×2 (05:29→20:33)
[2017-05-13] MEDS: Losartan Potassium 25 MG Tablet PO (05:30)
[2017-05-13] MEDS: Enoxaparin 40 MG/0.4 ML Syringe SC (05:30)
[2017-05-13] MEDS: Senna/Docusate Sodium 1 Tablet PO ×2 (05:30→17:32)
[2017-05-13] MEDS: LINAGLIPTIN 5 MG TABLET PO (05:30)
[2017-05-13] MEDS: Polyethylene Glycol 3350 17 GM PACKET PO (05:31)
[2017-05-13] MEDS: Acetaminophen 500 MG Tablet 1000 MG PO ×3 (05:31→20:30)
[2017-05-13 06:41] LABS: Bedside Glucose 155 mg/dL (70-110)
[2017-05-13] MEDS: Gabapentin 600 MG Tablet PO ×3 (08:23→17:32)
[2017-05-13 15:39] VITALS: BP 132/76; PULSE 102; RESP 18; TEMP 37.1; O2SAT 97
[2017-05-14] MEDS: BACITRACIN 15 GM Tube 1 APPLIC TOPICAL ×2 (05:40→20:35)
[2017-05-14] MEDS: Enoxaparin 40 MG/0.4 ML Syringe SC (05:41)
[2017-05-14] MEDS: Losartan Potassium 25 MG Tablet PO (05:41)
[2017-05-14] MEDS: Senna/Docusate Sodium 1 Tablet PO (05:42)
[2017-05-14] MEDS: LINAGLIPTIN 5 MG TABLET PO (05:42)
[2017-05-14] MEDS: Acetaminophen 500 MG Tablet 1000 MG PO ×3 (05:42→20:35)
[2017-05-14 06:36] LABS: Bedside Glucose 149 mg/dL (70-110)
[2017-05-14] MEDS: Gabapentin 600 MG Tablet PO ×3 (09:09→16:56)
--- NOTE | 2017-05-14 10:34 | NURSING ---
Pt refusing to walk to restroom today. Pt stating that he doesnt feel as if he can walk packer inspector put Pt on bedpan, Pt refused bedside commode. Courtney FRIEDMAN updated.
[2017-05-14 15:29] VITALS: BP 122/76; PULSE 96; RESP 20; TEMP 36.2; O2SAT 98
[2017-05-14 21:25] VITALS: PULSE 87; RESP 18; O2SAT 96
[2017-05-15] MEDS: BACITRACIN 15 GM Tube 1 APPLIC TOPICAL ×2 (05:32→21:39)
[2017-05-15] MEDS: Enoxaparin 40 MG/0.4 ML Syringe SC (05:32)
[2017-05-15] MEDS: Losartan Potassium 25 MG Tablet PO (05:32)
[2017-05-15] MEDS: Acetaminophen 500 MG Tablet 1000 MG PO ×3 (05:33→21:37)
[2017-05-15] MEDS: LINAGLIPTIN 5 MG TABLET PO (05:33)
[2017-05-15] MEDS: Senna/Docusate Sodium 1 Tablet PO ×2 (05:33→17:30)
[2017-05-15 06:36] LABS: Bedside Glucose 140 mg/dL (70-110)
[2017-05-15] MEDS: Gabapentin 600 MG Tablet PO ×3 (08:04→17:30)
--- NOTE | 2017-05-15 13:33 | CASEMGMT ---
Insurance Clinical information faxed. Pending continued stay approval at this time. Auth#[id number] Kelsea MAN, MARKETING CONTENT MANAGER
[2017-05-15 16:00] VITALS: BP 137/74; PULSE 96; RESP 18; TEMP 36.7; O2SAT 99
--- NOTE | 2017-05-15 16:15 | CHAPLAIN ---
Type of Pastoral Visit ___ Initial Visit _x__ Follow-up Visit ___ On-call Visit ___ General Patient Visit ___ Spiritual Assessment ___ Family Conference ___ Bereavement ___ Rapid Response ___ Code Blue ___ Other (describe below) Pastoral Care Referral From _x__ Patient ___ Family ___ Nurse ___ Physician ___ Loan Representative ___ Tire Retreader ___ Other (describe below) Sacrament/Intervention ___ Active listening ___ Anointing ___ Worship ___ Bereavement ___ Communion ___ Karrie exploration ___ ___ Life review _x__ Prayer ___ Reconciliation ___ Sacrament of Sick _x__ Supportive presence ___ Wedding ___ Other (describe below) Pastoral Comments
[2017-05-16] MEDS: Senna/Docusate Sodium 1 Tablet PO ×2 (05:14→05:15)
[2017-05-16] MEDS: BACITRACIN 15 GM Tube 1 APPLIC TOPICAL ×2 (05:14→21:36)
[2017-05-16] MEDS: Enoxaparin 40 MG/0.4 ML Syringe SC (05:14)
[2017-05-16] MEDS: Losartan Potassium 25 MG Tablet PO (05:14)
[2017-05-16] MEDS: LINAGLIPTIN 5 MG TABLET PO (05:15)
[2017-05-16] MEDS: Acetaminophen 500 MG Tablet 1000 MG PO ×3 (05:15→21:38)
[2017-05-16] MEDS: Polyethylene Glycol 3350 17 GM PACKET PO (05:16)
[2017-05-16 06:46] LABS: Bedside Glucose 168 mg/dL (70-110)
[2017-05-16] MEDS: Gabapentin 600 MG Tablet PO ×3 (08:00→16:57)
[2017-05-16 10:56] VITALS: BP 154/83; PULSE 110; RESP 19; TEMP 36.3; O2SAT 96
--- NOTE | 2017-05-16 11:08 | NURSING ---
Addendum entered by Tomasa Manzanares 05/16/17 11:37: returned call, updated her on all. did ask if this is normal? Explained to that all his tests from both hospitals have all been negative. Asked if ok for room camera per Dr gardiner request, agreed. Original Note: 11am, staff x2 assisting pt to stand up scale w/gaitbelt on from WC, pt legs buckled and he went down on knees. Pt had just finished therapy at [facility] w/Izabel, HYDRAULIC PLUMBER. Small abrasions to Bilat knees. NO drnegro noted. PT assisted x4 to wheel chair, pt would not assist staff with getting back to WC. Asked pt to lift legs when sitting in WC and he only picks them up with both hands and then sets them back down. Dr gardiner notified, new order for camera on in room. Attempted to notify , no answer, left message to call TCU for update. Notified electrician supervisor substation and TCU jewelry store manager
[2017-05-16 15:49] VITALS: BP 130/72; PULSE 102; RESP 14; TEMP 36.3; O2SAT 95
--- NOTE | 2017-05-16 16:06 | CASEMGMT ---
Insurance Continued stay approved with next update due on 05/18/17. Last cover day would be 05/20/17. Auth#[id number] Kelsea MAN, FARM MANAGEMENT SUPERVISOR
[2017-05-16 21:30] VITALS: BP 139/79; PULSE 87; RESP 20; TEMP 36.8; O2SAT 98
[2017-05-16 21:50] VITALS: PULSE 87; RESP 20; O2SAT 98
[2017-05-17] MEDS: Acetaminophen 500 MG Tablet 1000 MG PO ×3 (05:20→21:17)
[2017-05-17] MEDS: BACITRACIN 15 GM Tube 1 APPLIC TOPICAL (05:29)
[2017-05-17] MEDS: Polyethylene Glycol 3350 17 GM PACKET PO (05:30)
[2017-05-17] MEDS: Losartan Potassium 25 MG Tablet PO (05:30)
[2017-05-17] MEDS: Senna/Docusate Sodium 1 Tablet PO ×2 (05:30→17:18)
[2017-05-17] MEDS: LINAGLIPTIN 5 MG TABLET PO (05:30)
[2017-05-17] MEDS: Enoxaparin 40 MG/0.4 ML Syringe SC (05:30)
[2017-05-17 06:56] LABS: Bedside Glucose 152 mg/dL (70-110)
[2017-05-17 07:00] VITALS: RESP 18; O2SAT 96
[2017-05-17] MEDS: Gabapentin 600 MG Tablet PO ×3 (08:03→17:18)
[2017-05-17 16:49] VITALS: BP 131/82; PULSE 88; RESP 16; TEMP 36.4; O2SAT 98
[2017-05-18] MEDS: Polyethylene Glycol 3350 17 GM PACKET PO (06:22)
[2017-05-18] MEDS: Senna/Docusate Sodium 1 Tablet PO ×2 (06:22→17:38)
[2017-05-18] MEDS: LINAGLIPTIN 5 MG TABLET PO (06:22)
[2017-05-18] MEDS: Losartan Potassium 25 MG Tablet PO (06:22)
[2017-05-18] MEDS: Enoxaparin 40 MG/0.4 ML Syringe SC (06:22)
[2017-05-18] MEDS: Acetaminophen 500 MG Tablet 1000 MG PO ×3 (06:23→21:00)
[2017-05-18 07:01] LABS: Bedside Glucose 164 mg/dL (70-110)
[2017-05-18] MEDS: Gabapentin 600 MG Tablet PO ×3 (08:17→17:38)
[2017-05-18 10:00] VITALS: PULSE 75; RESP 18; O2SAT 96
--- NOTE | 2017-05-18 14:38 | CASEMGMT ---
Insurance Clinical information faxed. Pending continued stay approval at this time. Auth#[id number] Kelsea MAN, INSTRUMENT AND CONTROL TECHNICIAN
[2017-05-18 16:00] VITALS: BP 114/67; PULSE 74; RESP 18; TEMP 36.6; O2SAT 98
[2017-05-19 06:02] LABS: Absolute Neutrophil Count 5.1 X10^3/uL (2.0-7.7); Basophil# 0.05 X10^3/uL; Basophil% 0.6 % (0-1); Eosinophil# 0.23 X10^3/uL; Eosinophils% 2.7 % (0-5); Hematocrit 41.6 % (40-54); Hemoglobin 14.7 g/dl (13.0-16.5); Lymphocyte % 25.5 % (19-41); Mean Corp Hgb Conc 35.3 g/gl (32-36); Mean Corpuscular Hgb 31.8 pg (27.0-32.0); Mean Platelet Vol. 11.8 fl (6.2-12.0); Monocyte# 1.04 X10^3/uL; Monocyte% 12.1 % (0-10); Neutrophil # 5.09 X10^3/uL (2.7-7.7); Neutrophil % 58.9 % (47-70); Platelet Count 304 K/mm3 (150-450); RBC Distribution Width SD 38.6 fl (35.1-43.9); Red Blood Count 4.62 M/mm3 (4.6-6.2); White Blood Count 8.6 K/mm3 (4.4-11.0)
[2017-05-19] MEDS: Acetaminophen 500 MG Tablet 1000 MG PO ×3 (06:03→21:33)
[2017-05-19] MEDS: Senna/Docusate Sodium 1 Tablet PO ×2 (06:03→17:13)
[2017-05-19] MEDS: Gabapentin 600 MG Tablet PO ×3 (06:03→17:13)
[2017-05-19] MEDS: LINAGLIPTIN 5 MG TABLET PO (06:03)
[2017-05-19] MEDS: Losartan Potassium 25 MG Tablet PO (06:03)
[2017-05-19] MEDS: Enoxaparin 40 MG/0.4 ML Syringe SC (06:04)
[2017-05-19 06:08] LABS: POSITIVE COUNT NO; POSITIVE DIFFERENTIAL NO; POSITIVE MORPHOLOGY NO
[2017-05-19 06:46] LABS: Anion Gap 10 (5-15); BUN 13 mg/dL (7-18); BUN/Creat Ratio 23.5 RATIO (10-20); Calcium,Total 8.9 mg/dL (8.5-10.1); Chloride 102 mmol/L (98-107); Creatinine, Serum 0.55 mg/dL (0.70-1.30); EST Glomerular Filtration Rate 160 mL/min (>60); Est Glom Filt Rate - Afr Amer 193 mL/min (>60); Estimated Creatinine Clearance 141.04 ml/min; Glucose 127 mg/dL (74-106); Potassium 3.8 mmol/L (3.5-5.1); Sodium Level 136 mmol/L (136-145)
[2017-05-19 06:56] LABS: Bedside Glucose 144 mg/dL (70-110)
--- NOTE | 2017-05-19 12:05 | CASEMGMT ---
Insurance Continued stay approved with next update due on 05/24/17. LCD: 05/25/17. Auth#[id number] Kelsea MAN, SILK FOLDER
[2017-05-19 16:00] VITALS: BP 152/83; PULSE 91; RESP 16; TEMP 36.7; O2SAT 98
[2017-05-19 22:00] VITALS: PULSE 60; RESP 16; O2SAT 90
[2017-05-20] MEDS: Enoxaparin 40 MG/0.4 ML Syringe SC (04:51)
[2017-05-20] MEDS: Losartan Potassium 25 MG Tablet PO (04:52)
[2017-05-20] MEDS: LINAGLIPTIN 5 MG TABLET PO (04:52)
[2017-05-20] MEDS: Acetaminophen 500 MG Tablet 1000 MG PO ×3 (04:52→21:35)
[2017-05-20] MEDS: Senna/Docusate Sodium 1 Tablet PO ×2 (04:52→17:47)
[2017-05-20 06:56] LABS: Bedside Glucose 152 mg/dL (70-110)
[2017-05-20] MEDS: Gabapentin 600 MG Tablet PO ×3 (08:31→17:47)
[2017-05-20 16:00] VITALS: BP 142/65; PULSE 94; RESP 18; TEMP 36.8; O2SAT 98
[2017-05-20 16:01] VITALS: RESP 16
[2017-05-21] MEDS: LINAGLIPTIN 5 MG TABLET PO (04:56)
[2017-05-21] MEDS: Enoxaparin 40 MG/0.4 ML Syringe SC (04:56)
[2017-05-21] MEDS: Senna/Docusate Sodium 1 Tablet PO ×2 (04:56→17:12)
[2017-05-21] MEDS: Polyethylene Glycol 3350 17 GM PACKET PO (04:56)
[2017-05-21] MEDS: Acetaminophen 500 MG Tablet 1000 MG PO ×3 (04:56→21:16)
[2017-05-21] MEDS: Losartan Potassium 25 MG Tablet PO (04:56)
[2017-05-21 07:01] LABS: Bedside Glucose 135 mg/dL (70-110)
[2017-05-21] MEDS: Gabapentin 600 MG Tablet PO ×3 (08:40→17:12)
[2017-05-21 15:43] VITALS: BP 133/65; PULSE 83; RESP 16; TEMP 36.7; O2SAT 99
[2017-05-21 17:26] VITALS: PULSE 72; RESP 16; O2SAT 99
[2017-05-22] MEDS: Enoxaparin 40 MG/0.4 ML Syringe SC (06:06)
[2017-05-22] MEDS: Senna/Docusate Sodium 1 Tablet PO ×2 (06:06→16:35)
[2017-05-22] MEDS: Polyethylene Glycol 3350 17 GM PACKET PO (06:06)
[2017-05-22] MEDS: Losartan Potassium 25 MG Tablet PO (06:06)
[2017-05-22] MEDS: LINAGLIPTIN 5 MG TABLET PO (06:06)
[2017-05-22] MEDS: Acetaminophen 500 MG Tablet 1000 MG PO ×3 (06:06→22:05)
[2017-05-22 06:51] LABS: Bedside Glucose 148 mg/dL (70-110)
[2017-05-22] MEDS: Gabapentin 600 MG Tablet PO ×3 (08:08→16:35)
[2017-05-22 15:24] VITALS: BP 149/85; PULSE 99; RESP 20; TEMP 36.8; O2SAT 99
--- NOTE | 2017-05-22 19:09 | PCM.TCUNOT ---
Subjective: Resident sitting in room while interviewed. I told him I think he is suffering conversion disorder, or factitious disorder, or Munchhausen syndrome. He is neurologically intact, he is able to perform all therapy, but he insists, he has fear of falling, and requests a transfer board, when he can transfer without help of transfer board. Resident has been notified his room camera is on, and he is being monitored for his safety. We discussed his depression and anxiety, and although he denied, will treat with paroxetine anyways. I told him of the risk of malingering, that the longer he stays on TCU, the more he will risk having something major go wrong. I told him he does not belong on the TCU. Vitals/I&O's: Vital Signs Temp Pulse Resp BP Pulse Ox 98.2 F 99 20 H 149/85 H 99 05/22/17 15:24 05/22/17 15:24 05/22/17 15:24 05/22/17 15:24 05/22/17 15:24 Oxygen Delivery Method Room Air Weight: 101 kg Body Mass Index (BMI) 30.3 Intake and Output for Last 24 Hours 05/20/17 05/21/17 05/22/17 23:59 23:59 23:59 Intake Total 1440 / 1440 1200 / 1200 960 / 960 Output Total 900 / 900 275 / 275 1225 / 1225 Balance 540 / 540 925 / 925 -265 / -265 Laboratory Results 05/22/17 06:38: POC Glucose 148 H 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) Hypertension (Chronic) KODY (obstructive sleep apnea) (Chronic) DM2 (diabetes mellitus, type 2) (Chronic) Renal cyst (Chronic) Diabetic amyotrophy (Chronic) Allergies amphetamine Adverse Reaction (Verified 04/26/17 00:00) Other metformin [From Glucophage] Adverse Reaction (Verified 04/26/17 00:00) Nausea Home Medications: Ambulatory Orders Medication Instructions Recorded Gabapentin [Neurontin] 600 mg PO TIDCM #90 tab 04/25/17 Acetaminophen [Tylenol Tablet] 1,000 mg PO Q8 04/27/17 Insulin Aspart [Novolog Flexpen] 5 units SC TIDCM 04/27/17 Insulin Detemir [Levemir FlexPen] 10 units SC QHS 04/27/17 Losartan Potassium [Cozaar] 25 mg PO DAILY 04/27/17 Surgical History: no surgical history Psychiatric History: No pertinent psych hx Lives: Spouse/ Significant Other Smoking Status: Never smoker Tobacco Use: Non-smoker Alcohol: None Drugs: None - *Family History Paternal History Items: Dementia, - - 3 - 6 strokes when in his 70's Maternal History Items: No pertinent history Review of Systems Constitutional: Denies: Chills, Fever, Weight Change HEENT: Denies: Head Aches, Sinus Congestion, Sinus Drainage Cardiovascular: Denies: Chest Pain, Palpitations Respiratory: Denies: Cough, Shortness of breath at rest, Sputum production Gastrointestinal: Denies: Abdominal Pain, Nausea, Vomiting Genitourinary: Denies: Dysuria Musculoskeletal: Denies: Joint Pain, Joint Tenderness Skin: Denies: Rash, Wounds Neurological: Denies: Numbness, Tingling, Focal weakness Psychiatric: Denies: Anxiety, Depression, Homicidal Ideations, Suicidal Ideations Hematologic/ Lymphatic: Denies: Easy Bruising, Easy Bleeding Patient Problems: Active and Suspected Problems (Last Updated 04/12/17 @ 16:53 by Merry Fraser) Fall (Acute) Leg pain (Acute) - Physical Exam General: Alert, Oriented x3, Cooperative HEENT: Atraumatic, PERRLA, EOMI, Normocephalic Neck: Supple, No JVD, Negative Carotid Bruits Lungs: Clear to auscultation, Normal air movement Cardiovascular: Regular rate, No murmurs Abdomen: Bowel Sounds Present, Soft, Non Tender Extremities: No edema, Capillary Refill Less than 3 Seconds Skin: No rashes, No breakdown Musculoskeletal: No Tenderness to Palpation of Joints or Extremities Neurological: Cranial nerves II-XII grossly intact Psych/Mental Status: Normal Affect, Appropriate Vital Signs Temp Pulse Resp BP Pulse Ox 98.2 F 99 20 H 149/85 H 99 05/22/17 15:24 05/22/17 15:24 05/22/17 15:24 05/22/17 15:24 05/22/17 15:24 Oxygen Delivery Method Room Air Weight: 101 kg Body Mass Index (BMI) 30.3 Intake and Output for Last 24 Hours 0205/21/17 05/22/17 23:59 23:59 23:59 Intake Total 1440 / 1440 1200 / 1200 960 / 960 Output Total 900 / 900 275 / 275 1225 / 1225 Balance 540 / 540 925 / 925 -265 / -265 POC Glucose 05/22/17 06:38 POC Glucose 148 H Assessment/Plan Active and Suspected Problems (Last Updated 04/12/17 @ 16:53 by Merry Fraser) Fall (Acute) Leg pain (Acute) 61 year old male with below past medical history significant for diabetic amyotrophy, hospitalized for fall, weakness, inability to care for self, admitted to TCU for rehabilitation, strengthening, prior to disposition determination. Debility - PT/OT. Pain - Tylenol 1000MG Q8H, Tramadol 50MG Q6H PRN moderate pain. Bowel - Miralax 17GM daily, Senna/colace 1 tablet BID, Dulcolax 10MR daily PRN. DVT prophylaxis - Stop Lovenox, he is at low risk for DVT. Neuropathic pain - Gabapentin 600MG TID. Diabetes Mellitus II - Tradjenta 5MG daily, glucose well controlled. Hypertension - Losartan 25MG daily. Depression/anxiety - Start Paroxetine 20MG QHS.
--- NOTE | 2017-05-22 19:24 | PN_ITS ---
Subjective: Resident sitting in room while interviewed. I told him I think he is suffering conversion disorder, or factitious disorder, or Munchhausen syndrome. He is neurologically intact, he is able to perform all therapy, but he insists, he has fear of falling, and requests a transfer board, when he can transfer without help of transfer board. Resident has been notified his room camera is on, and he is being monitored for his safety. We discussed his depression and anxiety, and although he denied, will treat with paroxetine anyways. I told him of the risk of malingering, that the longer he stays on TCU, the more he will risk having something major go wrong. I told him he does not belong on the TCU. Vitals/I&O's: Vital Signs Temp Pulse Resp BP Pulse Ox 98.2 F 99 20 H 149/85 H 99 05/22/17 15:24 05/22/17 15:24 05/22/17 15:24 05/22/17 15:24 05/22/17 15:24 Oxygen Delivery Method Room Air Weight: 101 kg Body Mass Index (BMI) 30.3 Intake and Output for Last 24 Hours 05/20/17 05/21/17 05/22/17 23:59 23:59 23:59 Intake Total 1440 / 1440 1200 / 1200 960 / 960 Output Total 900 / 900 275 / 275 1225 / 1225 Balance 540 / 540 925 / 925 -265 / -265 Laboratory Results 05/22/17 06:38: POC Glucose 148 H 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) Hypertension (Chronic) KODY (obstructive sleep apnea) (Chronic) DM2 (diabetes mellitus, type 2) (Chronic) Renal cyst (Chronic) Diabetic amyotrophy (Chronic) Allergies amphetamine Adverse Reaction (Verified 04/26/17 00:00) Other metformin [From Glucophage] Adverse Reaction (Verified 04/26/17 00:00) Nausea Home Medications: Ambulatory Orders Medication Instructions Recorded Gabapentin [Neurontin] 600 mg PO TIDCM #90 tab 04/25/17 Acetaminophen [Tylenol Tablet] 1,000 mg PO Q8 04/27/17 Insulin Aspart [Novolog Flexpen] 5 units SC TIDCM 04/27/17 Insulin Detemir [Levemir FlexPen] 10 units SC QHS 04/27/17 Losartan Potassium [Cozaar] 25 mg PO DAILY 04/27/17 Surgical History: no surgical history Psychiatric History: No pertinent psych hx Lives: Spouse/ Significant Other Smoking Status: Never smoker Tobacco Use: Non-smoker Alcohol: None Drugs: None - *Family History Paternal History Items: Dementia, - - 3 - 6 strokes when in his 70's Maternal History Items: No pertinent history Review of Systems Constitutional: Denies: Chills, Fever, Weight Change HEENT: Denies: Head Aches, Sinus Congestion, Sinus Drainage Cardiovascular: Denies: Chest Pain, Palpitations Respiratory: Denies: Cough, Shortness of breath at rest, Sputum production Gastrointestinal: Denies: Abdominal Pain, Nausea, Vomiting Genitourinary: Denies: Dysuria Musculoskeletal: Denies: Joint Pain, Joint Tenderness Skin: Denies: Rash, Wounds Neurological: Denies: Numbness, Tingling, Focal weakness Psychiatric: Denies: Anxiety, Depression, Homicidal Ideations, Suicidal Ideations Hematologic/ Lymphatic: Denies: Easy Bruising, Easy Bleeding Patient Problems: Active and Suspected Problems (Last Updated 04/12/17 @ 16:53 by Merry Fraser) Fall (Acute) Leg pain (Acute) - Physical Exam General: Alert, Oriented x3, Cooperative HEENT: Atraumatic, PERRLA, EOMI, Normocephalic Neck: Supple, No JVD, Negative Carotid Bruits Lungs: Clear to auscultation, Normal air movement Cardiovascular: Regular rate, No murmurs Abdomen: Bowel Sounds Present, Soft, Non Tender Extremities: No edema, Capillary Refill Less than 3 Seconds Skin: No rashes, No breakdown Musculoskeletal: No Tenderness to Palpation of Joints or Extremities Neurological: Cranial nerves II-XII grossly intact Psych/Mental Status: Normal Affect, Appropriate Vital Signs Temp Pulse Resp BP Pulse Ox 98.2 F 99 20 H 149/85 H 99 05/22/17 15:24 05/22/17 15:24 05/22/17 15:24 05/22/17 15:24 05/22/17 15:24 Oxygen Delivery Method Room Air Weight: 101 kg Body Mass Index (BMI) 30.3 Intake and Output for Last 24 Hours 0205/21/17 05/22/17 23:59 23:59 23:59 Intake Total 1440 / 1440 1200 / 1200 960 / 960 Output Total 900 / 900 275 / 275 1225 / 1225 Balance 540 / 540 925 / 925 -265 / -265 POC Glucose 05/22/17 06:38 POC Glucose 148 H Assessment/Plan Active and Suspected Problems (Last Updated 04/12/17 @ 16:53 by Merry Fraser) Fall (Acute) Leg pain (Acute) 61 year old male with below past medical history significant for diabetic amyotrophy, hospitalized for fall, weakness, inability to care for self, admitted to TCU for rehabilitation, strengthening, prior to disposition determination. * Debility - PT/OT. * Pain - Tylenol 1000MG Q8H, Tramadol 50MG Q6H PRN moderate pain. * Bowel - Miralax 17GM daily, Senna/colace 1 tablet BID, Dulcolax 10MR daily PRN. * DVT prophylaxis - Stop Lovenox, he is at low risk for DVT. * Neuropathic pain - Gabapentin 600MG TID. * Diabetes Mellitus II - Tradjenta 5MG daily, glucose well controlled. * Hypertension - Losartan 25MG daily. * Depression/anxiety - Start Paroxetine 20MG QHS.
[2017-05-22] MEDS: PARoxetine 10 MG Tablet 20 MG PO (22:05)
[2017-05-22 22:48] VITALS: O2SAT 98
[2017-05-23] MEDS: Senna/Docusate Sodium 1 Tablet PO ×2 (05:43→17:07)
[2017-05-23] MEDS: Losartan Potassium 25 MG Tablet PO (05:43)
[2017-05-23] MEDS: Acetaminophen 500 MG Tablet 1000 MG PO ×3 (05:43→20:33)
[2017-05-23] MEDS: LINAGLIPTIN 5 MG TABLET PO (05:43)
[2017-05-23 06:31] LABS: Bedside Glucose 120 mg/dL (70-110)
[2017-05-23] MEDS: Gabapentin 600 MG Tablet PO ×3 (07:52→17:07)
[2017-05-23 15:24] VITALS: BP 151/77; PULSE 90; RESP 18; TEMP 36.6; O2SAT 99
[2017-05-23] MEDS: PARoxetine 10 MG Tablet 20 MG PO (20:33)
[2017-05-24] MEDS: Polyethylene Glycol 3350 17 GM PACKET PO (05:25)
[2017-05-24] MEDS: Acetaminophen 500 MG Tablet 1000 MG PO ×3 (05:30→21:27)
[2017-05-24] MEDS: Senna/Docusate Sodium 1 Tablet PO ×2 (05:30→17:23)
[2017-05-24] MEDS: LINAGLIPTIN 5 MG TABLET PO (05:30)
[2017-05-24] MEDS: Losartan Potassium 25 MG Tablet PO (05:30)
[2017-05-24 06:46] LABS: Bedside Glucose 137 mg/dL (70-110)
[2017-05-24] MEDS: Gabapentin 600 MG Tablet PO ×3 (08:09→17:23)
--- NOTE | 2017-05-24 10:46 | CASEMGMT ---
Insurance Clinical information faxed. Pending continued stay approval at this time. Auth#[id number] Kelsea MAN, ENDOSCOPE TECHNICIAN
[2017-05-24 15:27] VITALS: BP 141/81; PULSE 91; RESP 16; TEMP 36.8; O2SAT 98
--- NOTE | 2017-05-24 16:09 | CASEMGMT ---
Insurance Continued stay denied with last cover day being 05/25/17 and discharge or resident financial responsibility to begin on 05/26/17. Auth#[id number] Kelsea MAN, SWITCH REPAIRER
--- NOTE | 2017-05-24 16:10 | CASEMGMT ---
Social Work Spoke with resident in room. This home health care social worker communicating to resident that continued stay has been denied by resident insurance at this time with a last cover day of 05/25/17 and a discharge or resident financial responsibility to begin on 05/26/17. Resident agreeable to discharge date and planning to discharge home with spouse. Resident reporting to have all needed durable medical equipment already set up within the home at this time. Resident spouse plans to provide transportation home for resident. This home health care social worker communicating therapy recommendation for resident to have continued therapy services within the home. Resident is declining recommendation at this time reporting to have a family member that is a physical therapist that will be working with resident within the home. This home health care social worker broaching topic of resident depression/anxiety. Resident reporting to be doing well with mood at this time and to no require any intervention. Resident reporting to be able to notify family about discharge date/plan and to not need this home health care social worker to contact resident family. Support given. Proposed discharge date: 05/26/17 PLAN: Discharge home with spouse. Kelsea MAN, FREIGHT BROKER AGENT
--- NOTE | 2017-05-24 16:36 | CASEMGMT ---
Brief interview for mental status (BIMS) and resident mood interview (PHQ-9) completed on this day. BIMS score 15. PHQ-9 score 07/28
--- NOTE | 2017-05-24 20:05 | DCINST_ITS ---
- Discharge Diagnoses Current Active Problems: Current Active and Chronic Problems (Last Updated 04/12/17 @ 16:53 by Merry Fraser ) Fall (Acute) Diabetic amyotrophy (Chronic) Leg pain (Acute) You will use the following diet at home:: No restrictions, Regular Your food should be the consistency of: Regular Your liquids should be the consistency of: Regular/Thin Discharge Activity: Return to Normal Activity, May Shower, Use Walker May resume sexual activity in: No Restrictions Weight Bearing Status: Weight bearing as tolerated Call your doctor if you observe: Fever of 101 or Higher, Inability to urinate, Inability to have a bowel movement, Shortness of breath, Chest pain, Uncontrolled pain Allergies/Adverse Reactions: Allergies amphetamine Adverse Reaction (Verified 04/26/17 00:00) Other metformin [From Glucophage] Adverse Reaction (Verified 04/26/17 00:00) Nausea Medications to take at Discharge Acetaminophen [Tylenol Tablet] 1,000 mg PO Q8 04/27/17 Losartan Potassium [Cozaar] 25 mg PO DAILY 04/27/17 Gabapentin [Neurontin] 600 mg PO TIDCM #90 tab 05/24/17 Linagliptin [Tradjenta] 5 mg PO DAILY #30 tab 05/24/17 Polyethylene Glycol 3350 [Miralax] 17 gm PO DAILY #30 packet 05/24/17 TraMADol [Ultram] 50 mg PO Q6H PRN PRN #30 tablet 05/24/17 The following prescriptions were given: TraMADol [Ultram] 50 mg PO Q6H PRN PRN #30 tablet PRN Reason: Moderate Pain (4-5/10) Linagliptin [Tradjenta] 5 mg PO DAILY #30 tab Polyethylene Glycol 3350 [Miralax] 17 gm PO DAILY #30 packet Gabapentin [Neurontin] 600 mg PO TIDCM #90 tab Primary Care Physician: Adal Santiago [Primary Care Provider] - Please follow up with your Primary Care Physician in: 1 week. Proposed Discharge Date: 05/26/17
--- NOTE | 2017-05-24 20:05 | PCM.DC.SUM ---
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) Hypertension (Chronic) KODY (obstructive sleep apnea) (Chronic) DM2 (diabetes mellitus, type 2) (Chronic) Renal cyst (Chronic) Diabetic amyotrophy (Chronic) Hospital Course and Treatment Imaging Results: 04/27/17 12:41 Diet: Cardiac/Low Cholesterol Type of Dietary Supplement:: Glucerna Shake Is pt able to select menu?: Yes Diet Comments: carb control Labs (Last 48 Hours) 05/23/17 05/24/17 06:16 06:31 POC Glucose 120 H 137 H Operations: None Procedures: None Summary of Care Provided: The patient is a 61 year old Male with below past medical history significant for diabetic amyotrophy, hospitalized for fall, weakness, inability to care for self, admitted to TCU for rehabilitation, strengthening, prior to discharge home. On TCU, resident noted to have normal neurological exam. Normal strength, normal coordination. I believe resident is malingering, or suffering conversion disorder/factitious disorder/or Munchhausen syndrome. He appears to prefer using a wheelchair rather than walking when he is perfectly able to walk. His psychological issues are deep, and he would benefit from [facility] mental health services. Resident is a case often read about in Abnormal Psychology textbooks but seldom seen in person. [] Will discharge home with spouse. Resident declined home health services. Discharge Diet: No Restrictions Discharge Activity: Return to Normal Activity, May Shower, Use Walker May resume sexual activity in: No Restrictions Weight Bearing Status: Weight bearing as tolerated Call your doctor if you observe: Fever of 101 or Higher, Inability to urinate, Inability to have a bowel movement, Shortness of breath, Chest pain, Uncontrolled pain Home Medications: Medications to take at Discharge Acetaminophen [Tylenol Tablet] 1,000 mg PO Q8 04/27/17 Losartan Potassium [Cozaar] 25 mg PO DAILY 04/27/17 Gabapentin [Neurontin] 600 mg PO TIDCM #90 tab 05/24/17 Linagliptin [Tradjenta] 5 mg PO DAILY #30 tab 05/24/17 Polyethylene Glycol 3350 [Miralax] 17 gm PO DAILY #30 packet 05/24/17 TraMADol [Ultram] 50 mg PO Q6H PRN PRN #30 tablet 05/24/17 Following Prescrptions Were Given to Patient: TraMADol [Ultram] 50 mg PO Q6H PRN PRN #30 tablet PRN Reason: Moderate Pain (4-5/10) Linagliptin [Tradjenta] 5 mg PO DAILY #30 tab Polyethylene Glycol 3350 [Miralax] 17 gm PO DAILY #30 packet Gabapentin [Neurontin] 600 mg PO TIDCM #90 tab Primary Care Physician: Adal Santiago [Primary Care Provider] - Please follow up with your Primary Care Physician in: 1 week. Disposition: Home Minutes spent on discharge:: 30 Patient Condition:: Fair Meaningful Use Info Meaningful Use Diagnoses (Choose all that apply): None applicable
[2017-05-24] MEDS: PARoxetine 10 MG Tablet 20 MG PO (21:27)
[2017-05-25] MEDS: Senna/Docusate Sodium 1 Tablet PO ×2 (05:09→17:33)
[2017-05-25] MEDS: Acetaminophen 500 MG Tablet 1000 MG PO ×3 (05:09→20:21)
[2017-05-25] MEDS: LINAGLIPTIN 5 MG TABLET PO (05:09)
[2017-05-25] MEDS: Losartan Potassium 25 MG Tablet PO (05:09)
[2017-05-25] MEDS: Polyethylene Glycol 3350 17 GM PACKET PO (05:09)
[2017-05-25 06:41] LABS: Bedside Glucose 145 mg/dL (70-110)
[2017-05-25] MEDS: Gabapentin 600 MG Tablet PO ×3 (08:00→17:33)
[2017-05-25 15:46] VITALS: BP 150/69; PULSE 88; RESP 17; TEMP 37.1; O2SAT 100
[2017-05-25 20:20] VITALS: BP 154/82; PULSE 84; RESP 16; TEMP 36; O2SAT 98
[2017-05-25] MEDS: PARoxetine 10 MG Tablet 20 MG PO (20:21)
[2017-05-26] MEDS: Losartan Potassium 25 MG Tablet PO (05:28)
[2017-05-26] MEDS: LINAGLIPTIN 5 MG TABLET PO (05:28)
[2017-05-26] MEDS: Senna/Docusate Sodium 1 Tablet PO (05:28)
[2017-05-26] MEDS: Acetaminophen 500 MG Tablet 1000 MG PO ×2 (05:28→14:15)
--- NOTE | 2017-05-26 05:37 | NURSING ---
PATIENT TEARY WITH 0600 MEDS, TOOK ULTRAM X 2 TONIGHT. NOW STATES PAIN 9/10 IN BACK, HIPS AND KNEES. GIVEN ULTRAM. REPORTED TO IDALIA PARRY. WILL CONT TO MONITOR.
[2017-05-26 05:58] LABS: Absolute Lymphocyte Count 2.14 X10^3/ul (0.83-4.51); Absolute Neutrophil Count 5.4 X10^3/uL (2.0-7.7); Basophil# 0.03 X10^3/uL; Basophil% 0.3 % (0-1); Eosinophil# 0.19 X10^3/uL; Eosinophils% 2.1 % (0-5); Hematocrit 42.1 % (40-54); Lymphocyte # 2.14 X10^3/ul (4.0); Lymphocyte % 24.2 % (19-41); Mean Corp Hgb Conc 35.6 g/gl (32-36); Mean Corpuscular Hgb 31.8 pg (27.0-32.0); Mean Corpuscular Volume 89.4 fL (80-94); Mean Platelet Vol. 11.4 fl (6.2-12.0); Monocyte# 1.09 X10^3/uL; Monocyte% 12.3 % (0-10); Neutrophil # 5.36 X10^3/uL (2.7-7.7); Neutrophil % 60.8 % (47-70); Platelet Count 336 K/mm3 (150-450); RBC Distribution Width CV 12.1 % (11.6-14.6); RBC Distribution Width SD 39.1 fl (35.1-43.9); Red Blood Count 4.71 M/mm3 (4.6-6.2); White Blood Count 8.8 K/mm3 (4.4-11.0)
[2017-05-26 06:04] LABS: POSITIVE COUNT NO; POSITIVE DIFFERENTIAL NO; POSITIVE MORPHOLOGY NO
[2017-05-26 06:11] LABS: Anion Gap 9 (5-15); BUN 9 mg/dL (7-18); BUN/Creat Ratio 17.9 RATIO (10-20); Calcium,Total 9.1 mg/dL (8.5-10.1); Chloride 102 mmol/L (98-107); EST Glomerular Filtration Rate 179 mL/min (>60); Est Glom Filt Rate - Afr Amer 216 mL/min (>60); Estimated Creatinine Clearance 155.15 ml/min; Glucose 126 mg/dL (74-106); Potassium 3.7 mmol/L (3.5-5.1); Sodium Level 135 mmol/L (136-145)
[2017-05-26 06:45] VITALS: RESP 18
[2017-05-26 07:06] LABS: Bedside Glucose 140 mg/dL (70-110)
[2017-05-26] MEDS: Gabapentin 600 MG Tablet PO ×2 (08:00→12:10)
[2017-05-26 09:34] VITALS: BP 139/87; PULSE 87; RESP 18; TEMP 37.1; O2SAT 98
--- NOTE | 2017-05-26 10:45 | NURSING ---
CLARIFIED WITH DR GEIGER REGARDING PAXIL. PT WAS TAKING PAXIL HERE BUT DOES NOT WANT PT TAKING IT AT DISCHARGE.
--- NOTE | 2017-05-26 15:05 | CASEMGMT ---
Insurance Notified insurance of resident discharge date on 05/26/17 to home with spouse. Auth#[id number] Kelsea MAN, [employer]
== END 2017-05-26 14:25 | disposition home or self-care (01) | DRG 74 ==
PROVIDERS: Admitting Provider Family Medicine Geriatric Medicine; Family Provider Family Medicine; PCP Family Medicine; Visit Provider Family Medicine Geriatric Medicine
DX: E11.44 Type 2 diabetes mellitus with diabetic amyotrophy (principal); N28.1 Cyst of kidney, acquired; B35.1 Tinea unguium; M46.46 Discitis, unspecified, lumbar region; F41.9 Anxiety disorder, unspecified; F32.9 Major depressive disorder, single episode, unspecified; G47.33 Obstructive sleep apnea (adult) (pediatric); I10 Essential (primary) hypertension; M46.86 Other specified inflammatory spondylopathies, lumbar region; Z91.81 History of falling; Z79.899 Other long term (current) drug therapy; Z79.4 Long term (current) use of insulin; L85.3 Xerosis cutis
CPT/HCPCS: 36415; 80048; 82962; 85025; 93970; 97110; 97116; 97162; 97166; 97530; 97535; 97802

== ENCOUNTER → 2019-01-22 | Outpatient (CLI) | payer MEDICAID, SELFPAY ==
[2019-01-22 15:08] LABS: Microalbumin,Random Urine 21.5 mg/L (NO RANGE EST.); Microalbumin:Creatinine Ratio 30.7 mg/g CRE (<30 mg/g CRE)
== END | disposition home or self-care (01) ==
LOC: LABSPEC 14:31
PROVIDERS: Family Provider Family Medicine; PCP Family Medicine; Referring Provider Family Medicine; Visit Provider Family Medicine
DX: N28.9 Disorder of kidney and ureter, unspecified (principal)
CPT/HCPCS: 82043; 82570